=== PATIENT | male | born 1985 | race Caucasian/White ===

== ENCOUNTER → 2016-09-13 | Outpatient (CLI) | payer BC, OTHER | END | disposition home or self-care (01) | LOC: C.PATHSPEC 15:32 | PROVIDERS: ATTEND Urology | DX: Z30.2 Encounter for sterilization (principal) ==

== ENCOUNTER → 2017-03-21 | Outpatient (CLI) | payer BC, OTHER ==
--- NOTE | 2017-03-21 15:06 | DIAGNOSTIC IMAGING REPORT ---
ULTRASOUND TESTES AND SCROTUM CLINICAL HISTORY: Abdominal mass. Right lower quadrant pain. COMPARISON STUDY: No priors. TECHNIQUE: Real-time, grayscale, and color Doppler sonography of the testes and scrotum is performed. Images are reviewed in the transverse and longitudinal planes. FINDINGS: The testes are normal in size and homogeneous in echotexture. The right testis measures 4.9 x 2.3 x 2.7 cm and the left testis measures 4.8 x 2.1 x 2.9 cm. No intratesticular mass is seen. Testicular blood flow is normal and symmetric. Normal Doppler waveforms are identified in both testes. The epididymal heads are normal in appearance. The right epididymal head measures 1.1 cm in length and the left epididymal head measures 1.1 cm in length. No varicocele or hydrocele is seen. IMPRESSION: Unremarkable sonographic assessment of the testes and scrotum. Electronically signed by: Bogdan Roa M.D. 03/21/2017 3:04 PM Dictated Date/Time: 03/21/2017 3:02 PM
--- NOTE | 2017-03-21 15:19 | DIAGNOSTIC IMAGING REPORT ---
ABDOMEN FOR HERNIA CLINICAL HISTORY: Right lower quadrant abdominal mass. Evaluate for hernia. COMPARISON STUDY: No previous studies for comparison. FINDINGS: Targeted sonography of the right inguinal region revealed no inguinal hernia. No mass was identified by sonography. IMPRESSION: No right inguinal hernia or mass identified by sonography. Electronically signed by: Evangelist Roberts M.D. 03/21/2017 3:18 PM Dictated Date/Time: 03/21/2017 3:17 PM
== END | disposition home or self-care (01) ==
PROVIDERS: ATTEND Urology
DX: R19.03 Right lower quadrant abdominal swelling, mass and lump (principal)